=== PATIENT | male | born 1975 | race Caucasian/White ===

== ENCOUNTER 2022-03-30 19:51 | Emergency (ER) | payer BC ==
[~2022-03-30] VITALS: Ht 162.6 cm; Wt 59.0 kg
[2022-03-30] MEDS ORDERED: NAPROSYN500 MG PO (21:36)
== END 2022-03-30 21:44 | disposition home or self-care (01) ==
LOC: ER 20:07
DX: S93.511A Sprain of interphalangeal joint of right great toe, initial encounter (principal); R60.9 Edema, unspecified; W21.89XA Striking against or struck by other sports equipment, initial encounter; Y93.B9 Activity, other involving muscle strengthening exercises
CPT/HCPCS: 99282; 99283